=== PATIENT | male | born 1990 | race Caucasian/White ===

== ENCOUNTER 2023-03-14 20:32 | Emergency (ER) | payer OTHER ==
[2023-03-14 20:38] VITALS: BP 149/72; PULSE 71; RESP 18; TEMP 98.2; BMI 44.1
[2023-03-14] MEDS ORDERED: ACETAMINOPHEN 500 MG TABLET (FP) PO ONE (22:10)
[2023-03-14] MEDS ORDERED: ACETAMINOPHEN 500 MG TABLET (FP) ONE (22:20)
== END 2023-03-14 23:58 | disposition home or self-care (01) ==
LOC: JER 20:32
PROC: 2W3DX1Z Immobilization of Left Lower Arm using Splint (ICD-10-PCS; principal; 2023-03-14)
DX: S52.124A Nondisplaced fracture of head of right radius, initial encounter for closed fracture (principal); M25.532 Pain in left wrist; M79.641 Pain in right hand; R51.9 Headache, unspecified; S00.11XA Contusion of right eyelid and periocular area, initial encounter; V89.2XXA Person injured in unspecified motor-vehicle accident, traffic, initial encounter
CPT/HCPCS: 70450-TC; 70486-TC; 72125-TC; 73030-TC-RT-FY; 73060-TC-RT-FY; 73070-TC-RT-FY; 99284-25

== ENCOUNTER 2023-10-16 15:04 | Emergency (ER) | payer OTHER ==
[2023-10-16 15:23] VITALS: RESP 18; TEMP 97.4; BMI 47.1
[2023-10-16] MEDS ORDERED: KETOROLAC TROMETHAMINE 30 MG/1 ML VIAL ONE (17:07)
[2023-10-16] MEDS ORDERED: ONDANSETRON 4 MG/2 ML VIAL ONE (17:07)
[2023-10-16 17:13] LABS: HEMATOCRIT 42.4 % (35.4-49); HEMOGLOBIN 14.3 GM/dL (11.7-16.9); MCH 27.1 pg (25.7-33.7); MCHC 33.8 g/dl (32.0-35.9); MEAN CELL VOLUME 80.4 fl (80-96); MEAN PLT VOLUME 9.3 fl (7.5-11.1); PLATELET COUNT 153 10^3/uL (134-434); RBC 5.27 M/mm3 (4.00-5.60); RDW 13.5 % (11.9-15.9)
[2023-10-16 17:15] LABS: EPI CELLS 5 /uL (0-25.1); HYALINE CASTS 1 /uL (0-3.1); PH,URINE 5.5 (5.0-8.0); URINE APPEARANCE CLEAR; URINE BACTERIA 2 /uL (0-1359); URINE BILIRUBIN NEGATIVE (NEGATIVE); URINE COLOR YELLOW; URINE GLUCOSE (UA) NEGATIVE (NEGATIVE); URINE KETONE 3+ (NEGATIVE); URINE LEUK ESTERASE NEGATIVE (NEGATIVE); URINE NITRITE NEGATIVE (NEGATIVE); URINE PROTEIN 2+ (NEGATIVE); URINE RBC 26 /uL (0-23.9); URINE UROBILINOGEN 0.2 mg/dL (0.2-1.0); URINE WBC 6 /uL (0-25.8)
[2023-10-16 17:30] LABS: POTASSIUM 5.4 mmol/L (3.5-5.1)
[2023-10-16] MEDS: ONDANSETRON 4 MG/2 ML VIAL IVPUSH ONE (17:31)
[2023-10-16] MEDS: SODIUM CHLORIDE 1,000 ML IV STA (17:31)
[2023-10-16] MEDS: KETOROLAC TROMETHAMINE 30 MG/1 ML VIAL IVPUSH ONE (17:31)
[2023-10-16 17:34] LABS: ALBUMIN 3.9 g/dl (3.4-5.0); BLOOD UREA NITROGEN 15.4 mg/dL (7-18); CALCIUM 9.6 mg/dL (8.5-10.1)
[2023-10-16 17:37] LABS: CREATININE 1.1 mg/dL (0.55-1.3)
[2023-10-16 17:38] LABS: BILIRUBIN,TOTAL 0.4 mg/dL (0.2-1); TOT PROT 8.4 g/dl (6.4-8.2)
[2023-10-16 19:01] LABS: ANISOCYTOSIS 0; MACROCYTOSIS 0
[2023-10-16] MEDS ORDERED: TAMSULOSIN HCL 0.4 MG CAP ONE (20:19)
[2023-10-16] MEDS: TAMSULOSIN HCL 0.4 MG CAP PO ONE (20:26)
[2023-10-16 20:28] VITALS: BP 130/60; PULSE 79
== END 2023-10-16 20:28 | disposition home or self-care (01) ==
LOC: JER 15:04
PROC: 3E0333Z Introduction of Anti-inflammatory into Peripheral Vein, Percutaneous Approach (ICD-10-PCS; principal; 2023-10-16)
PROC: 3E033GC Introduction of Other Therapeutic Substance into Peripheral Vein, Percutaneous Approach (ICD-10-PCS; 2023-10-16)
PROC: 3E0337Z Introduction of Electrolytic and Water Balance Substance into Peripheral Vein, Percutaneous Approach (ICD-10-PCS; 2023-10-16)
DX: N13.2 Hydronephrosis with renal and ureteral calculous obstruction (principal); M54.9 Dorsalgia, unspecified; R10.9 Unspecified abdominal pain; R11.2 Nausea with vomiting, unspecified
CPT/HCPCS: 36415; 71046-TC-FY; 74176-TC; 80053; 81003; 83690; 85025; 87086; 99285-25